=== PATIENT | female | born 1990 | race Caucasian/White ===

== ENCOUNTER 2016-08-19 20:15 | Emergency (ER) | payer OTHER | END 2016-08-19 21:50 | disposition home or self-care (01) | LOC: ER1 20:15 | DX: M25.532 Pain in left wrist (principal); F17.210 Nicotine dependence, cigarettes, uncomplicated; Z88.5 Allergy status to narcotic agent | CPT/HCPCS: 29130; 73110; 99283 ==

== ENCOUNTER → 2021-03-06 | Outpatient (CLI) | payer OTHER ==
[~2021-03-06] MED LIST: COLACE100 MG PO; ENSKYCE 28 TAB1 EACH PO; IBU600 MG PO; NORCO 5-325 TA1 EACH PO; PYRIDIUM200 MG PO
== END ==
LOC: KOH-I 12:43
DX: E04.9 Nontoxic goiter, unspecified (principal)
CPT/HCPCS: 76536